=== PATIENT | male | born 1950 | race Caucasian/White ===

== ENCOUNTER → 2018-11-09 | Outpatient (CLI) | payer MEDICARE, OTHER ==
[~2018-11-09] MED LIST: SIMVASTATIN40 MG PO
--- NOTE | 2018-11-09 11:16 | Diagnostic Imaging Report ---
Exam: CT abdomen and pelvis Clinical history: Renal stone Technique: Helical images of the abdomen and pelvis were obtained without contrast Findings: The lung bases are clear. There is no evidence of pleural effusion. The cardiac size is within normal limits. Noncontrast images of the liver, spleen, pancreas, adrenal glands, and kidneys are unremarkable. The small and large bowels are normal in caliber without evidence of obstruction. Moderate retained feces are noted in the ascending colon. The bladder is unremarkable. The prostate is diffusely enlarged. The seminal vesicles are within normal limits. There is no evidence of lymphadenopathy or free fluid. The aorta and IVC are normal in caliber. Bilateral small fat-containing inguinal hernias are noted. Degenerative changes are noted throughout the lumbar spine with loss in disc height and endplate sclerosis. Impression: 1. No radiopaque stones noted in bilateral renal collecting systems. 2. Prostate enlargement. Correlation with physical exam and PSA is recommended. Signed by: Dr. Ward Valentin MD on 11/09/2018 11:13 AM
== END ==
LOC: MERGE 09:42 → CT 09:42
PROVIDERS: ATTEND Family Medicine
DX: N23 Unspecified renal colic (principal); N40.0 Benign prostatic hyperplasia without lower urinary tract symptoms
CPT/HCPCS: 74176